=== PATIENT | female | born 1970 | race Caucasian/White ===

== ENCOUNTER 2018-11-05 06:07 | Inpatient (IN) | payer OTHER ==
[2018-11-04 08:34] VITALS: BMI 27.3
[2018-11-05] MEDS ORDERED: HEPARIN NA (PORCINE) 5,000 UNITS/ML 1ML VIAL SQ ONE (07:11)
--- NOTE | 2018-11-05 07:23 | HP ---
History & Physical Update - History History: No Change - Physical Physical: No Change - Assessment Assessment: No Change - Plan Plan: No Change
[2018-11-05] MEDS ORDERED: DEXAMETHASONE SOD PHOSPHATE/PF 10 MG/ML SDV ONE (07:26)
[2018-11-05] MEDS ORDERED: BUPIVACAINE HCL/PF 0.5% (5MG/ML) 10 ML VIAL ONE (07:26)
[2018-11-05] MEDS ORDERED: LIDOCAINE 1%-EPI 1:100,000 30 ML MDV IJ ONE (07:28)
[2018-11-05] MEDS ORDERED: BUPIVACAINE HCL/PF 0.25% (2.5MG/ML) 10 ML VIAL ONE (07:29)
[2018-11-05] MEDS ORDERED: ROCURONIUM BROMIDE 50 MG/5 ML SYRINGE ONE ×2 (07:58→09:40)
[2018-11-05] MEDS ORDERED: ceFAZolin SODIUM 1 GM VIAL ONE (07:58)
[2018-11-05] MEDS ORDERED: fentaNYL CITRATE 250 MCG/5 ML VIAL ONE (07:58)
[2018-11-05] MEDS ORDERED: DEXAMETHASONE SOD PHOSPHATE 4 MG/1 ML VIAL ONE (07:58)
[2018-11-05] MEDS ORDERED: PROPOFOL 20 ML ONE (07:59)
[2018-11-05] MEDS ORDERED: MIDAZOLAM HCL 2 MG/2 ML SINGLE DOSE VIAL ONE (08:01)
[2018-11-05] MEDS ORDERED: ceFAZolin SODIUM 1 GM VIAL IVPB ONE (08:25)
[2018-11-05] MEDS ORDERED: SUCCINYLCHOLINE CHLORIDE 200 MG/10 ML SYRINGE ONE (08:36)
[2018-11-05] MEDS ORDERED: LIDOCAINE HCL/PF 2% SDV 5ML VIAL ONE (08:37)
[2018-11-05] MEDS ORDERED: CEFAZOLIN 2 GM in DEXTROSE 5%-WATER 100 ML IVPB ONE (08:45)
[2018-11-05] MEDS ORDERED: BUPIVACAINE HCL/PF 0.25% (2.5MG/ML) 10 ML VIAL IJ ONE ×2 (08:49→12:09)
[2018-11-05] MEDS ORDERED: LIDOCAINE 1%/EPI 1:100000 (20 ML MULTI DOSE VIAL) IJ ONE ×3 (08:50→12:32)
[2018-11-05] MEDS ORDERED: KETOROLAC TROMETHAMINE 30 MG/1 ML VIAL ONE (13:08)
[2018-11-05] MEDS ORDERED: oxyCODONE HCL 5 MG TABLET PO PRN (13:11)
--- NOTE | 2018-11-05 13:23 | OP ---
Operative Note - Note: Operative Date: 11/05/18 Pre-Operative Diagnosis: uterine prolapse Operation: supracervical hysterectomy, bilateral salpingectomy, cystoscopy, colpopexy anterior and posterior colporrhaphy Surgeon: Joan Osman Oim Consultant: Ayse Richmond Anesthesiologist/SMALL BATTERY PLATE ASSEMBLER: Tawana Peter Anesthesia: General Specimens Removed: uterus with bilateral salpingx Estimated Blood Loss (mls): 100 Drains, Volume Out (mls): 50 (mc) Fluid Volume Replaced (mls): 1,300 Operative Report Dictated: Yes
[2018-11-05] MEDS ORDERED: ONDANSETRON 4 MG/2 ML VIAL IVPUSH PRN (13:35)
[2018-11-05] MEDS ORDERED: ACETAMINOPHEN INJECTION 100 ML IVPB ONE (13:49)
[2018-11-05] MEDS ORDERED: ACETAMINOPHEN 1000 MG/100 ML VIAL (NON FORMULARY) IVPB ONE ×2 (14:00)
[2018-11-05] MEDS ORDERED: LACTATED RINGERS SOLUTION 1,000 ML IV SCH (14:30)
[2018-11-05] MEDS ORDERED: SODIUM CHLORIDE 1,000 ML IV SCH (15:00)
--- NOTE | 2018-11-05 16:18 | OP ---
DATE OF OPERATION: 11/05/2018 ATTENDING SURGEON: Joan Osman MD MARKETING CONTENT MANAGER: МАРИНА Mitchell SURGERY: Robotic supracervical hysterectomy, bilateral salpingectomy, sacrocolpopexy, posterior colpoperineorrhaphy, and cystoscopy. IV FLUIDS: 1300 mL of lactated Ringer. ESTIMATED BLOOD LOSS: 100 mL. URINE OUTPUT: 100 mL. DRAINS: A 16-Latvian Patel catheter. SPECIMENS: Uterus and bilateral fallopian tubes. COMPLICATIONS: None. INDICATION: The patient is a 48-year-old female with stage 3 uterine prolapse that was bothersome and patient desired surgical intervention. She was counseled regarding treatment options, informed consent was obtained and the patient now presents for surgery. OPERATION: The patient was brought to the operating room and placed supine on the operating room table. She had already received 5000 subcutaneous heparin, 2 g Kefzol IV was administered. There were no adverse reactions. General anesthesia was induced and endotracheal tube was placed and secured. Bilateral sequential compression devices were placed on the lower extremities prior to induction of anesthesia. The patient was then placed in dorsal lithotomy position, the arms were tucked, and the beanbag secured. The patient was placed in Trendelenburg and once adequate positioning was ensured, the abdomen was then prepped and the genitalia were prepped in the usual sterile fashion. A 16-Latvian Patel catheter was placed to drain the bladder. An incision was made about 1 cm above the umbilicus in the midline, and a 5-mm Visiport was used to gain access to the abdomen. The abdomen was insufflated and no intraabdominal injury was noted. We then placed 8-mm robotic trocars, 2 on the left, 1 on the right, and the lateralmost was a 5-8 mm switchboard operator assistant port. The Visiport was exchanged for an 8-mm robotic port. The patient was then placed into Trendelenburg and the robot was docked. The uterus was identified and was noted to be normal, as well as the bilateral ovaries. The fallopian tube was off of the ovary using electrocautery. The round ligament was divided and the uteroovarian ligament was divided as well using cautery. The broad ligament was into the anterior and posterior flaps and the bladder dissected off the anterior surface of the uterus. The same was performed on the contralateral side. The uterine arteries were cauterized adequately on both sides, after which a supracervical hysterectomy was performed. The specimen was then placed to the side. The anterior peritoneal flap was then developed, extending along the anterior surface of the vagina. The peritoneal flap was also developed posteriorly. Once adequate dissection had been performed on both sides, we then retracted the sigmoid laterally to identify the sacral promontory. The peritoneum over the sacral promontory was cleared off, identifying the anterior spinous ligament. We then placed the Restorelle mesh into the abdomen and the mesh was fixed to the anterior and posterior vagina using interrupted 2-0 PDS stitches. About 6 stitches were placed on either side. We then placed the cephalad portion of the mesh to the sacral promontory using interrupted 0 Prolene stitches. A total of 3 stitches were placed. The pelvis was irrigated and no active bleeding was noted. The peritoneum was then closed over the mesh, thus retroperitonealizing it using a 2-0 V-Loc suture. The robot was then undocked and an EndoCatch bag was placed through the supraumbilical port site and the uterus was placed into the EndoCatch bag. The ports were watched as they were removed. We then extended the supraumbilical port site incision to accommodate pulling out the specimen. The specimen was removed intact, the uterus and bilateral fallopian tubes. We then irrigated all the incisions. The supraumbilical incision fascia was closed with 0 Vicryl UR-6, interrupted 3-0 Vicryl stitches were placed in Paulie fascia, and all the skin incisions were closed using a subcutaneous 4-0 Monocryl closure. Dermabond was then applied. We then proceeded to the posterior colpoperineorrhaphy portion of the case. A danielle-shaped incision was marked on the area where the perineal body was lost. Lidocaine with epinephrine was injected here. The danielle-shaped skin was removed, ensuring just to remove the superficial epithelium. The vaginal skin was dissected off the vaginal muscularis. We then placed plication sutures using [address]-1 needle, and at least 3 plication sutures were made to reapproximate the posterior vaginal muscularis. We also placed plication stitches to reapproximate the perineal body. Excess vaginal skin was excised. The incision was irrigated. The vaginal skin was closed using a 3-0 Vicryl on an SH. The perineal skin was also closed using a subcuticular 3-0 Vicryl stitch. A vaginal packing was placed. Cystoscopy was performed, confirming no bladder injury and bilateral ureteral efflux. A vaginal packing was placed in the vagina. The Patel was replaced. The patient was then awoken from anesthesia, transferred to the recovery room in good condition. There were no accidental lacerations or punctures. Dr. Osman was present and performed the entire procedure. MD AMANDEEP SALMON/[id number]
[2018-11-05] MEDS ORDERED: PT OWN MED DRAWER 7, Y5N ONE (16:57)
[2018-11-05] MEDS: CEFAZOLIN 1 GM/D5W 1 GM/50 ML BAG IVPB SCH (17:33)
[2018-11-05] MEDS ORDERED: ACETAMINOPHEN 325 MG TABLET (FP) PO SCH ×2 (18:00→22:00)
[2018-11-05] MEDS: oxyCODONE HCL 5 MG TABLET PO PRN (20:24)
[2018-11-05] MEDS ORDERED: KETOROLAC TROMETHAMINE 30 MG/1 ML VIAL IVPUSH SCH (22:00)
[2018-11-05] MEDS: KETOROLAC TROMETHAMINE 30 MG/1 ML VIAL IVPUSH SCH (22:09)
[2018-11-05] MEDS: DOCUSATE SODIUM 100 MG CAPSULE (FP) PO SCH (22:09)
[2018-11-06] MEDS: CEFAZOLIN 1 GM/D5W 1 GM/50 ML BAG IVPB SCH (01:38)
[2018-11-06] MEDS: ACETAMINOPHEN 325 MG TABLET (FP) PO SCH ×3 (01:38→10:10)
[2018-11-06] MEDS ORDERED: PT OWN MED DRAWER 7, Y5N ONE (01:48)
[2018-11-06] MEDS: KETOROLAC TROMETHAMINE 30 MG/1 ML VIAL IVPUSH SCH ×2 (06:12→13:43)
[2018-11-06 07:39] LABS: BASO % 0.4 % (0-2.0); EOS % 0.1 % (0-4.5); HEMATOCRIT 31.6 % (32.4-45.2); HEMOGLOBIN 10.5 GM/dL (10.7-15.3); LYMPH % 24.4 % (8-40); MCH 29.1 pg (25.7-33.7); MCHC 33.1 g/dl (32.0-36.0); MEAN CELL VOLUME 87.9 fl (80-96); MEAN PLT VOLUME 8.6 fl (7.5-11.1); MONO % 9.7 % (3.8-10.2); NEUT % 65.4 % (42.8-82.8); PLATELET COUNT 226 K/MM3 (134-434); RBC 3.59 M/mm3 (3.60-5.2); RDW 14.5 % (11.6-15.6); WHITE BLOOD COUNT 7.6 K/mm3 (4.0-10.0)
[2018-11-06 08:24] LABS: BLOOD UREA NITROGEN 9.8 mg/dL (7-18); CALCIUM 8.7 mg/dL (8.5-10.1); CREATININE 0.7 mg/dL (0.55-1.3); POTASSIUM 4.7 mmol/L (3.5-5.1)
--- NOTE | 2018-11-06 08:33 | PN ---
Progress Note (short form) - Note Progress Note: POD 1, s/p robotic assisted supracervical hysterectomy, bilateral salpingectomy , cystoscopy, colpopexy anterior and posterior colporrhaphy Pt seen and examined this AM. Tearful regarding pain level. Has been taking pain meds as prescribed overnight with some relief. Pain currently 6/10 with movement, better when lying still. Has not been oob yet. Patel still in place. Tolerating clears. No flatus. Denies n/v/d, cp/sob. Vital Signs Temp 99.4 F 11/06/18 07:19 Pulse 65 11/06/18 07:19 Resp 20 11/06/18 07:19 BP 101/60 11/06/18 07:19 Pulse Ox 99 11/05/18 21:00 Intake & Output 11/05/18 11/05/18 11/06/18 11:59 23:59 11:59 Intake Total 1400 2440 Output Total 150 1000 1600 Balance 1250 1440 -1600 Weight 185 lb Intake: IV 1400 2000 Lactated Ringers Solution 800 1,000 ml @ 75 mls/hr IV ASDIR ISAURA Rx#:[id number] Normal Saline - 1,000 ml 600 @ 125 mls/hr IV ASDIR ISAURA Rx#:[id number] Oral 440 Output: Urine 50 1000 1600 Patel 400 1600 Estimated Blood Loss 100 Other: Voiding Method Toilet Bowel Movement No Height 5 ft 9 in Body Mass Index (BMI) 27.3 Weight Measurement Method Stated by Patient CBC, BMP 11/06/18 06:45 11/06/18 06:45 Gen: awake, alert, tearful regarding pain Resp: CTA b/l anteriorly CV: rrr, s1s2 Abdo: soft, minimal ttp in lower quadrant as well as port sites. Dressings c/d/ i. Groin: Scant dried blood noted on pad, vaginal packing removed without issue, pt tolerated well. Ext: b/l scds in place and on A/P: 48 y/o F w/ h/o uterine prolapse, now POD 1, s/p robotic assisted supracervical hysterectomy, bilateral salpingectomy, cystoscopy, colpopexy anterior and posterior colporrhaphy. afebrile, VSS Patel in place 1600ml overnight Vaginal packing removed -Patel out this AM, TOV -Continue pain management as ordered Tylenol 650mg q6hrs scheduled, Toradol 30mg q 6hrs schedule, oxy 5/10mg q4hrs prn -Bowel regimen -OOB -IS encouraged -Regular diet as tolerated -Lovenox 40qd -Monitor VS per protocol Plan for d/c later this afternoon d/w attending Dr Osman Update: Pt voided "large amount" x 2 per RN. OOb in ruby without issue. Tolerating lunch. D/c order placed. Update sent to Dr Osman regarding above.
[2018-11-06] MEDS ORDERED: ENOXAPARIN NA (PORCINE) 40 MG/0.4 ML DISP.SYRIN SQ SCH (10:00)
[2018-11-06] MEDS: DOCUSATE SODIUM 100 MG CAPSULE (FP) PO SCH (10:11)
[2018-11-06] MEDS: oxyCODONE HCL 5 MG TABLET PO PRN (12:40)
--- NOTE | 2018-11-06 14:32 | DS ---
"Physical Exam: SUBJECTIVE: Pt seen and examined this AM. Tearful regarding pain level. Has been taking pain meds as prescribed overnight with some relief. Pain currently 6/10 with movement, better when lying still. Has not been oob yet. Mc still in place. Tolerating clears. No flatus. Denies n/v/d, cp/sob. OBJECTIVE: Vital Signs Period Temp Pulse Resp BP Sys/Mendoza Pulse Ox Last 24 Hr 98.4 F-99.4 F 65-80 14-20 101-133/60-77 99-100 PHYSICAL EXAM Gen: awake, alert, tearful regarding pain Resp: CTA b/l anteriorly CV: rrr, s1s2 Abdo: soft, minimal ttp in lower quadrant as well as port sites. Dressings c/d/ i. Groin: Scant dried blood noted on pad, vaginal packing removed without issue, pt tolerated well. Ext: b/l scds in place and on LABS Laboratory Results - last 24 hr 11/06/11/06/18 06:45 06:45 WBC 7.6 RBC 3.59 L Hgb 10.5 L Hct 31.6 L MCV 87.9 MCH 29.1 MCHC 33.1 RDW 14.5 Plt Count 226 MPV 8.6 Absolute Neuts (auto) 5.0 Neutrophils % 65.4 Lymphocytes % 24.4 Monocytes % 9.7 Eosinophils % 0.1 Basophils % 0.4 Nucleated RBC % 0 Sodium 142 Potassium 4.7 Chloride 108 H Carbon Dioxide 28 Anion Gap 6 L BUN 9.8 Creatinine 0.7 Est GFR (CKD-EPI)AfAm 118.74 Est GFR (CKD-EPI)NonAf 102.45 Random Glucose 83 Calcium 8.7 HOSPITAL COURSE: The patient was admitted to the Med-Surg Unit after an elective repair for her uterine prolapse. Now, s/p robotic assisted supracervical hysterectomy, bilateral salpingectomy, cystoscopy, colpopexy anterior and posterior colporrhaphy. The day of surgery narcotic and non-narcotic pain management control was achieved with an oral and IV approach. Sindi-operative IV ABX were administered. POD #1, the vaginal packing and mc were removed. The patient ambulated the hallway without issue. Patient voided twice without issue. DVT prophylaxis was achieved with SCDs and Lovenox. Narcotic scripts were checked with [place] [employer] prior to escribe. The discharge instructions and an oral pain management plan were reviewed with the patient. All questions answered. Above plan discussed with Dr. Osman and agreed. Date of Admission:11/05/18 Date of Discharge: 11/06/18 Minutes to complete discharge: 30 Discharge Summary Reason For Visit: UTERINE PROLAPSE Condition: Stable - Instructions Diet, Activity, Other Instructions: Dr. Osman Urology discharge instructions Physical activity: Resume your normal everyday activity as tolerated no heavy lifting or exercise until seen by your surgeon. You may walk unlimited amounts and climb stairs. You may resume driving the car when you feel safe and comfortable behind the wheel. No sexual activity as instructed by Dr. Osman Wound care: If you have a bandage, leave it on, and keep dry for 48-72 hours. After that time discard the outer bandage. If they are tapes on the skin under the out of bandage leave them in place. They will peel off in the next 7 to 10 days. Do Not Peel them off. You may shower the day after surgery. If there are tapes present on the skin, you may shower over them. Diet: There are no dietary restrictions. Eat healthy, high-fiber foods. Drink 6 to 8 glasses of liquid each day. This will assist in keeping your bowels are regular. Pain management: Take Tylenol (acetaminophen) and Ibuprofen (for example, Motrin, Advil etc.). Alternate these medications every 3 hours for pain for 48 hours after your surgery. Mckinley use any narcotics prescribed for breakthrough pain (moderate to severe pain). Call Dr. Osman for any of the following: * Severe pain not relieved by medication * Fever of 101 or higher * Excessive bleeding or drainage on dressing * Inability to urinate Call the office at [phone] to confirm post-operative appointment. This report was requested by: Ayse Richmond | Reference #: [id number] Disposition: HOME - Home Medications Comprehensive Discharge Medication List: Ambulatory Orders Bupropion HCl [Wellbutrin Xl -] 300 mg PO DAILY 11/04/18 Acetaminophen [Tylenol .Regular Strength -] 650 mg PO Q6H #8 tablet 11/05/18 Docusate Sodium [Colace -] 100 mg PO BID #14 capsule 11/05/18 Ibuprofen [Motrin -] 600 mg PO Q6H #8 tablet 11/05/18 Oxycodone HCl 5 mg PO Q6H PRN #10 tablet MDD 4 11/05/18 This patient is new to me today: Yes Date on this admission: 11/06/18 Emergency Visit: No Critical Care patient: No - Discharge Referral Referred to [facility] Med P.C.: No"
[2018-11-06 14:56] VITALS: BP 110/78; PULSE 75; TEMP 98.8
--- NOTE | 2018-11-07 11:22 | SURG ---
Surgery Primer Press Operator Note Primer Press Operator: Ayse Richmond PA-C Date of Service: 11/05/18 Diagnosis: uterine prolapse Procedure: robotic supracervical hysterectomy, bilateral salpingectomy, cystoscopy, colpopexy anterior and posterior colporrhaphy I was present for the entirety of the operative procedure. For further detail, please refer to operative report. Visit type - Case Type Case Type: Scheduled - Emergency Emergency Visit: No - New patient This patient is new to me today: Yes Date on this admission: 11/07/18
--- NOTE | 2018-11-11 14:32 | PATH ---
Surgical Pathology Report Patient Name: MELLISSA ANDRES [facility]. Rec. #: [id number] /Age/Gender: 1970 (Age: 48) / F Account: [id number] Location: [address] [place] [address] Taken: 11/05/2018 Received: 11/06/2018 Reported: 11/11/2018 Physicians: Joan Osman M.D. Specimen(s) Received UTERUS AND BILATERAL FALLOPIAN TUBES Clinical History Uterine prolapse Final Diagnosis UTERUS AND BILATERAL FALLOPIAN TUBES, ROBOTIC SUPRACERVICAL HYSTERECTOMY AND BILATERAL SALPINGECTOMY: 91 G UTERUS. PROLIFERATIVE ENDOMETRIUM. MYOMETRIUM WITH ADENOMYOSIS. PORTION OF ENDOCERVIX WITHOUT SIGNIFICANT PATHOLOGIC FINDINGS.. BILATERAL FALLOPIAN TUBES WITH ENDOSALPINGOSIS AND PARATUBAL CYSTS. Electronically Signed Luisa Van M.D. Gross Description Received in formalin labeled "uterus and bilateral fallopian tubes," is a 91 g supracervically amputated uterus with bilateral attached fallopian tubes. The specimen measures 6.5 cm from left to right, 5.5 cm from superior to inferior and 4.0 cm from anterior to posterior. The serosa is jessica-winkler and smooth. The endometrial cavity measures 4 cm in length and 2.5 cm from cornu to cornu. The endometrium is jessica-pink in averages 0.1 cm in thickness. The myometrium is jessica quach and averages 2.0 cm in thickness. No intramural nodules are identified. The left fimbriated fallopian tube measures 6 cm in length. The outer surface is jessica quach and smooth. Sectioning reveals an unremarkable lumen. The right fimbriated fallopian tube measures 6.5 cm in length. The outer surface is jessica quach and smooth. Sectioning reveals an unremarkable lumen. Seed Cleaning Machine Operator sections are submitted in 9 cassettes as follows: 1-cervical stump margin of resection; 7-6-mulpdyom endomyometrium; 2-1-smledxjbs endomyometrium; 6-left fallopian tube fimbria; 7-cross sections of left fallopian tube; 8-right fallopian tube fimbria; 9-cross sections of right fallopian tube. 11/07/2018 saudi11/07/2018
== END 2018-11-06 15:28 | disposition home or self-care (01) | DRG 743 ==
LOC: JSAMEDAYSX 06:07 → J6S 15:40
PROVIDERS: ADMIT Urology Female Pelvic Medicine and Reconstructive Surgery; ATTEND Urology Female Pelvic Medicine and Reconstructive Surgery
PROC: 0UT94ZL Resection of Uterus, Supracervical, Percutaneous Endoscopic Approach (ICD-10-PCS; 2018-11-05)
PROC: 0UT74ZZ Resection of Bilateral Fallopian Tubes, Percutaneous Endoscopic Approach (ICD-10-PCS; 2018-11-05)
PROC: 0UQG4ZZ Repair Vagina, Percutaneous Endoscopic Approach (ICD-10-PCS; 2018-11-05)
PROC: 8E0W4CZ Robotic Assisted Procedure of Trunk Region, Percutaneous Endoscopic Approach (ICD-10-PCS; 2018-11-05)
PROC: 8E0W4CZ Robotic Assisted Procedure of Trunk Region, Percutaneous Endoscopic Approach (ICD-10-PCS; 2018-11-05)
PROC: 0TJB8ZZ Inspection of Bladder, Via Natural or Artificial Opening Endoscopic (ICD-10-PCS; 2018-11-05)
PROC: 0USG4ZZ Reposition Vagina, Percutaneous Endoscopic Approach (ICD-10-PCS; principal; 2018-11-05 08:00)
DX: N81.4 Uterovaginal prolapse, unspecified (principal)
CPT/HCPCS: 36415; 80048; 85025; 86850; 86900; 86901; 88305-TC; 94760; J0131; J1644